=== PATIENT | male | born 1930 | race Caucasian/White ===

== ENCOUNTER → 2018-07-01 | Outpatient (CLI) | payer MEDICARE, OTHER | END | disposition home or self-care (01) | LOC: ROC 06:53 | PROVIDERS: ATTEND Radiology Radiation Oncology | DX: C61 Malignant neoplasm of prostate (principal) | CPT/HCPCS: G0463 ==

== ENCOUNTER 2019-11-29 22:08 | Emergency (ER) | payer MEDICARE, OTHER ==
[~2019-11-29] VITALS: Ht 188 cm; Wt 87.0 kg
[2019-11-29] MEDS ORDERED: METF500T17 PO (22:58)
[2019-11-29] MEDS ORDERED: METH2.5T PO (22:58)
[2019-11-29] MEDS ORDERED: GABA100C PO (22:58)
[2019-11-29] MEDS ORDERED: ASPI-515 PO (22:58)
[2019-11-29] MEDS ORDERED: PRED5TAB PO (22:58)
[2019-11-29] MEDS ORDERED: HYDR-3237 PO (22:58)
[2019-11-29] MEDS ORDERED: TAMS-11 PO (22:58)
[2019-11-29] MEDS ORDERED: GLIP10TA13 PO (22:58)
[2019-11-29] MEDS ORDERED: DAILY FIBER PEG (22:58)
[2019-11-29] MEDS ORDERED: ROSU5TAB PO (22:58)
--- NOTE | 2019-11-29 23:00 | NUR ---
PT REPORTS COMING INTO ED FOR CONSTIPATION, STATES IT HURTS ON HIS ENTIRE ABDOMEN, REPORTS 5-6 DAYS WITHOUT BM. ABDOMEN IS FRIM TO TOUCH. PT NAD, RESTING ON GURNEY, P/W/D. WAITING FOR LABS AND CT PT PLACED ON SPO2/BP MONITORING. AT BS. WCTM.
--- NOTE | 2019-11-29 23:06 | NUR ---
pt given urinal and informed that we need a urine sample. labs drawn. NAD, wctm. waiting for lab results.
[2019-11-29 23:18] LABS: MEAN CORPUSCULAR HEMOGLOBIN 31.8 pg (27.5-34.5); MEAN CORPUSCULAR HGB CONC 32.4 g/dL (33.2-36.2); MEAN CORPUSCULAR VOLUME 98.2 fL (81-97); MEAN PLATELET VOLUME 8.2 fL (7.4-10.4); PLATELET COUNT 257 x10^3/uL (130-400); RED BLOOD COUNT 4.15 x10^6/uL (4.38-5.82); RED CELL DISTRIBUTION WIDTH 14.2 % (9.4-14.8)
[2019-11-29 23:22] LABS: ALBUMIN 3.6 g/dL (3.4-5.0); ANION GAP 8 mmol/L (5-15); CALCIUM 8.7 mg/dL (8.5-10.1); CHLORIDE 107 mmol/L (98-107)
[2019-11-29 23:26] LABS: ALANINE AMINOTRANSFERASE 23 U/L (12-78); ALKALINE PHOSPHATASE 51 U/L (45-117); BILIRUBIN,TOTAL 0.5 mg/dL (0.2-1.0); CREATININE 0.85 mg/dL (0.7-1.3)
[2019-11-29] MEDS ORDERED: SODIUM CHLORIDE FLUSH 10ML SYR IVF ONE (23:30)
[2019-11-29 23:37] LABS: MICROSCOPIC NOT IND
--- NOTE | 2019-11-29 23:51 | NUR ---
PT RESTING ON GURNI, NAD, GIVEN WARM BLANKETS FOR COMFORT. STATES HIS ABDOMEN AND BUTT HURT. NAD, WCTM. WAITING FOR TEST RESULTS.
[2019-11-29] MEDS ORDERED: OMNIPAQUE 350 MG/ML, 100ML BOTTLE ONE (23:54)
[2019-11-29 23:56] LABS: BASOPHILS # (AUTO) 0.02 x10^3/uL (0-0.1); BASOPHILS % (AUTO) 0 % (0-1); EOSINOPHILS # (AUTO) 0.01 x10^3/uL (0-0.4); EOSINOPHILS % (AUTO) 0 % (1-7); LYMPHOCYTES # (AUTO) 0.78 x10^3/uL (1-3.4); LYMPHOCYTES % (AUTO) 7 % (22-44); MD SCAN; MONOCYTES # (AUTO) 0.21 x10^3/uL (0.2-0.8); MONOCYTES % (AUTO) 2 % (2-9); NEUTROPHILS # (AUTO) 10.54 x10^3/uL (1.8-6.8); NEUTROPHILS % (AUTO) 91 % (42-75)
[2019-11-30] MEDS ORDERED: POLYETHYLENE GLYCOL 17 GM PACKET PO ONE (00:30)
[2019-11-30] MEDS ORDERED: POLYETHYLENE GLYCOL 17 GM PACKET ONE (00:37)
--- NOTE | 2019-11-30 00:49 | NUR ---
Break RN: Pt medicated per MAY. Enema administered and pt aware to hold enema as long as he can. Bedside commode in place and pt able to transfer self well on his own. Call light in reach.
--- NOTE | 2019-11-30 01:00 | NUR ---
Pt up to bedside commode by self. States he would like some time on the commode. Call light in reach. at bedside.
[2019-11-30 01:30] VITALS: BP 124/70
--- NOTE | 2019-11-30 01:31 | NUR ---
HH[facility] enema administered, pt tolerated well. states he feels like he has to go and would like some time. given new pads and gown, pt sitting on bs commode. NAD, WCMARY.
--- NOTE | 2019-11-30 02:23 | NUR ---
pt passed a large amount of stool following [facility] enema. pt states he doesnt feel bloated anymore. RN cleaning approximately a soccer ball size of stool up. Pt NAD, appears more comfortable, denies additional needs at this time. wctm. pt to be dc'd once cleaned up and dressed.
--- NOTE | 2019-11-30 02:48 | NUR ---
Patient given discharge instructions and they have confirmed that they understand the instructions. Patient ambulatory with steady gait. NAD, DENIES ADDITIONAL NEEDS OR QUESTIONS. NO PT BELONGINGS LEFT IN ROOM AT [place].
== END 2019-11-30 02:52 | disposition home or self-care (01) ==
LOC: ED 23:42
DX: K56.41 Fecal impaction (principal); R10.84 Generalized abdominal pain; E11.9 Type 2 diabetes mellitus without complications
CPT/HCPCS: 36415; 74177; 80053; 81003; 83690; 85025; 99285; Q9967